=== PATIENT | female | born 1970 | race Caucasian/White ===

== ENCOUNTER 2022-08-06 11:44 | Emergency (ER) | payer BC, SELFPAY ==
[2022-08-06] VITALS (42 sets, daily range): BP systolic 127–178; BP diastolic 83–102; PULSE 79–94; RESP 9–33; TEMP 36.7; O2SAT 91–99
--- NOTE | 2022-08-06 11:48 | XRR_ITS ---
PROCEDURE INFORMATION: Exam: XR Chest Exam date and time: 08/06/2022 12:03 PM Age: 51 years old Clinical indication: Pain; Angina pectoris; Additional info: Cp TECHNIQUE: Imaging protocol: Radiologic exam of the chest. Views: 1 view. COMPARISON: No relevant prior studies available. FINDINGS: Lungs: No pulmonary vascular congestion, pulmonary edema or pneumonia. Pleural spaces: No pleural effusion or pneumothorax. Heart/Mediastinum: The cardiac silhouette is not enlarged. The mediastinal contours are normal. Bones/joints: No acute osseous abnormality. XR/XR chest 1V portable 17252 IMPRESSION: No acute finding.
--- NOTE | 2022-08-06 11:50 | ECG_ITS ---
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 Measurements Intervals [place] Rate: 94 P: 54 MD: 171 QRS: 4 QRSD: 93 T: 22 QT: 347 QTc: 436 Interpretive Statements SINUS RHYTHM No previous ECG available for comparison Electronically Signed On 08-07-2022 0:17:06 CDT by Wally Bashir M.D. [email or web address] [email or web address] [email or web address]/store/NU/[id number] f
--- NOTE | 2022-08-06 11:58 | ED_ITS ---
HPI - Chest Pain General: Chief Complaint: Chest Pain Stated Complaint: CP Time Seen by Provider: 08/06/22 11:56 History of Present Illness: Patient presents to the ER complaining of left- sided chest pain back pain and left shoulder pain. This pain has been going off and on since at least 3 days ago. Pain initially started off as a right-sided chest pain right shoulder pain that radiated up into her neck. She did go to the walk-in clinic at [facility]. Patient had EKGs and blood work done at that time. She states they did call her and tell her lab work was abnormal and did plan on setting her up for stress test. She says they did give her a prescription for nitro which she has used prior to arrival today with lessening of her pain. Patient has no personal history of cardiac issues. MD complaint: chest pain and chest heaviness Timing of current episode: episodic Prior episodes: Yes Pain location: left chest and right chest Pain radiation: right arm and left arm Severity: mild Quality: aching and dull Relieving factors: nitroglycerin Exacerbating factors: nothing Associated symptoms: Reports no associated symptoms; Deny abdominal pain, dyspnea, fever(s), nausea, palpitations or vomiting Treatment prior to arrival: nitroglycerin Risk Factors: Coronary artery disease risk factors: hyperlipidemia Review of Systems General: Reports: 10 or more systems reviewed and unremarkable except in HPI and below Const: Denies: fever(s), chills or body aches Eyes: Denies: change in vision ENMT: Denies: throat pain or odynophagia Card: Reports: chest pain; Denies: palpitations, irregular heart rhythm or edema Resp: Denies: dyspnea, productive cough, non-productive cough or wheezing GI: Denies: abdominal pain, nausea, vomiting or diarrhea : Denies: flank pain, difficulty voiding, dysuria or urinary frequency Musc: Reports: back pain and joint pain Skin/Breast: Denies: rash, pruritus, erythema or photosensitivity Neuro: Denies: headache(s), numbness in extremities or weakness in extremities Psych: Denies: anxiety, depression, mood swings or panic attacks Endo: Denies: polyuria, polydipsia, tired all the time or cold intolerance Nash/Lymph: Denies: easy bruising, easy bleeding, petechiae or purpura All/Imm: Denies: urticaria, throat swelling, tongue swelling or facial swelling Physical Exam Const: COMMON NORMALS: no acute distress, average body habitus, patient oriented x3, no limitations, healthy appearing, alert and well nourished HENMT: COMMON NORMALS: normocephalic and hearing grossly normal bilaterally HEAD & SCALP: normocephalic Eye: COMMON NORMALS: Equal, round and reactive pupils present, EOMs intact bilaterally and conjunctivae normal CONJUNCTIVA: Yes conjunctivae normal PUPIL: Yes Equal, round and reactive pupils present Neck/C-Spine: COMMON NORMALS: full ROM, no lymphadenopathy, supple, no JVD and Thyroid normal THYROID: Thyroid normal Lymph: LYMPHATIC: no lymphadenopathy noted Chest: CHEST: Yes localized rib tenderness with anteroposterior compression Resp: COMMON NORMALS: normal respiratory effort, No retractions, No use of accessory muscles and clear to auscultation bilaterally AUSCULTATION: clear to auscultation bilaterally Cardio: COMMON NORMALS: no JVD, regular rate, regular rhythm, S1 normal heart sound present, S2 normal heart sound present and No gallops present (Cardio) RATE: regular rate RHYTHM: regular rhythm HEART SOUNDS: S1 normal heart sound present and S2 normal heart sound present GI: COMMON NORMALS: Normal to inspection, nondistended, normoactive bowel sounds present, Soft to palpation, non-tender, No hepatosplenomegaly present and no masses PALPATION: Yes Soft to palpation and Yes No hepatosplenomegaly present : COMMON NORMALS: Yes no CVA tenderness BLADDER/KIDNEY EXAM: Yes no CVA tenderness Back/Pelvis: COMMON NORMALS: no CVA tenderness Extremity: COMMON NORMALS: normal to inspection Neuro: COMMON NORMALS: patient oriented x3, CN's II-XII intact bilaterally, moves all extremities, no focal motor deficits and no sensory deficits noted SENSORIUM/ORIENTATION: Yes alert Psych: COMMON NORMALS: mental status grossly normal, Normal thought process present, cooperative, normal affect and speech normal SPEECH: Yes normal speech THOUGHT PROCESS: Normal thought process present Course Vital Signs: Vital signs: Vital Signs Temperature 98.0 F 08/06/22 11:45 Pulse Rate 79 08/06/22 15:40 Respiratory Rate 13 08/06/22 15:40 Blood Pressure 131/94 08/06/22 15:40 Pulse Oximetry 97 08/06/22 15:40 Oxygen Delivery Me thod 08/06/22 13:25 MDM - Chest Pain Medical Decision Making Patient presents to the ER with intermittent chest pain for the last several days. Patient had been examined and worked up previously about 3 days ago for the same pain. Patient states the pain does move between her chest her back her left and right arms. Patient has no personal history of cardiac disease. Upon history and physical exam being performed as well as serial lab work and EKGs patient remains pain-free in ER at this time. Lab work EKGs and imaging was reviewed with the patient. She had a negative troponin and delta. Patient already has an outpatient stress test scheduled within the next week. Patient felt comfortable with discharge and outpatient follow-up as previously scheduled. Patient knows that if the pain returns or worsens or changes to present back to the ER as things may change. Differential Diagnosis Unlikely acute massive pulmonary embolism, acute respiratory failure, cardiac arrest or sudden cardiac Lab Data 08/06/22 12:22 08/06/22 12:22 Radiology Impressions Chest X-Ray 08/06/22 11:48 IMPRESSION: No acute finding. Laboratory Results WBC 10.7 10^3/uL (4.0-10.0) H 08/06/22 12:22 RBC 5.04 10^6/uL (4.1-5.3) 08/06/22 12:22 Hgb 16.5 g/dL (11.5-15.3) H 08/06/22 12:22 Hct 49.4 % (37.0-47.0) H 08/06/22 12:22 MCV 98.0 fl (81-99) 08/06/22 12:22 MCH 32.7 pg (28.0-34.0) 08/06/22 12:22 MCHC 33.4 g/dL (30.0-36.0) 08/06/22 12:22 RDW 11.9 % (12.1-15.1) L 08/06/22 12:22 Plt Count 353 10^3/cmm (130-400) 08/06/22 12:22 MPV 9.6 fL (7.4-10.4) 08/06/22 12:22 Neut % (Auto) 61.5 % 08/06/22 12:22 Lymph % (Auto) 32.1 % 08/06/22 12:22 [place] % (Auto) 4.5 % 08/06/22 12: Eos % (Auto) 0.9 % 08/06/22 12: Baso % (Auto) 0.5 % 08/06/22 12: Neut # (Auto) 6.56 10^3/uL (1.8-7.7) 08/06/22 12: Lymph # (Auto) 3.4 10^3/uL (0.8-4.8) 08/06/22 12:22 [place] # (Auto) 0.5 10^3/uL (0.2-0.9) 08/06/22 12: Eos # (Auto) 0.1 10^3/uL (0.0-0.8) 08/06/22 12: Baso # (Auto) 0.1 10^3/uL (0.0-0.1) 08/06/22 12: Nucleated RBC % (auto) 0 % 08/06/22 12: Nucleated RBCs # 0.0 /100WBC 08/06/22 12:22 Sodium 144 mmol/L (136-145) 08/06/22 12:22 Potassium 3.9 mmol/L (3.5-5.1) 08/06/22 12:22 Chloride 105 mmol/L (98-107) 08/06/22 12:22 Carbon Dioxide 26 mmol/L (22-29) 08/06/22 12:22 Anion Gap 16.9 (5-19) 08/06/22 12:22 BUN 10 mg/dL (6-20) 08/06/22 12:22 Creatinine 0.5 mg/dL (0.5-0.9) 08/06/22 12:22 GFR Calculation 130.6 mL/min (90-130) H 08/06/22 12:22 Glucose 92 mg/dL (65-115) 08/06/22 12:22 Calculated Osmolality 297 mOsm/kg (285-295) H 08/06/22 12:22 Calcium 9.8 mg/dL (8.5-10.5) 08/06/22 12:22 Total Bilirubin 0.2 mg/dL (0.15-1.2) 08/06/22 12:22 AST 22 U/L (0-32) 08/06/22 12:22 ALT 39 U/L (0-33) H 08/06/22 12:22 Alkaline Phosphatase 124 U/L (35-105) H 08/06/22 12:22 Troponin T Baseline 6 ng/L (0-10) 08/06/22 12:22 Troponin T 120 Minute 6.00 ng/L (0-10) 08/06/22 14:40 Delta Troponin T 0 ABS# (0-10) 08/06/22 14:40 Total Protein 7.8 g/dL (6.6-8.7) 08/06/22 12:22 Albumin 4.6 g/dL (3.5-5.2) 08/06/22 12:22 Globulin 3.2 g/dL (1.3-4.6) 08/06/22 12:22 EKG Data EKG 1: I personally reviewed and interpreted this EKG as follows: EKG interpretation date: 08/06/22 EKG interpretation time: 11:50 Prior EKG tracings: not available for review Interpretation: EKG showed ventricular rate of 94 bpm normal sinus rhythm, NJ interval 171, QRS duration 93, QTc of [address]-T wave changes no priors for comparison EKG 2: I personally reviewed and interpreted this EKG as follows: EKG interpretation date: 08/06/22 EKG interpretation time: 14:00 Prior EKG tracings: available for review Interpretation: EKG showed normal sinus rhythm, ventricular rate of 82 bpm, NJ interval 164, QRS duration of 98, QTc of 414, no ST-T wave changes Discharge Plan Discharge Patient Disposition: Home Clinical Impression: Atypical chest pain, Musculoskeletal pain Condition: Stable Prescriptions: No Action Carafate 1 gram Tablet 1 g PO BID@0400,1530 Protonix 20 mg Tablet,Delayed Release (Dr/Ec) 20 mg PO BID@0400,1530 lisinopril 10 mg Tablet 10 mg PO DAILY@1530 Nitrostat 0.4 mg Tablet, Sublingual 0.4 mg SUBLINGUAL Q5M PRN (Reason: Chest Pain) Rx Instructions: do not exceed 3 doses per episode gabapentin 100 mg Capsule 100 mg PO BID@0400,1530 Claritin 10 mg Tablet 10 mg PO DAILY@04 Multivitamin 50 Plus Tablet 1 tab PO DAILY@04 Wellbutrin XL 150 mg Tablet Extended Release 24 Hr 150 mg PO DAILY@04 Discharge Orders: Discharge ED (Routine); Ordered 08/06/22 Ordered By: Peterson Mejia Discharge Diet: Usual diet Discharge Activity: Resume usual activity Patient Instructions: Chest Pain - Noncardiac Activity Restrictions/Additional Instructions: Follow-up with your primary care physician within the next 1 week. keep outpatient stress test appointment as previously scheduled, return to the ER if chest pain worsens or changes. This may be a sign of changing condition Coding Level of Care Code ED [employer] Developer for [address]
[2022-08-06 12:43] LABS: Basophils # 0.1 10^3/uL (0.0-0.1); Basophils % 0.5 %; Eosinophils # 0.1 10^3/uL (0.0-0.8); Eosinophils % 0.9 %; Hematocrit 49.4 % (37.0-47.0); Hemoglobin 16.5 g/dL (11.5-15.3); Lymphocytes # 3.4 10^3/uL (0.8-4.8); Lymphocytes % 32.1 %; Mean Corpuscular HGB Conc 33.4 g/dL (30.0-36.0); Mean Corpuscular Hemoglobin 32.7 pg (28.0-34.0); Mean Platelet Volume 9.6 fL (7.4-10.4); Monocytes # 0.5 10^3/uL (0.2-0.9); Monocytes % 4.5 %; Neutrophils # 6.56 10^3/uL (1.8-7.7); Neutrophils % 61.5 %; Nucleated Red Blood Cells % 0 %; Platelet Count 353 10^3/cmm (130-400); Red Blood Count 5.04 10^6/uL (4.1-5.3); Red Cell Distribution Width 11.9 % (12.1-15.1); White Blood Count 10.7 10^3/uL (4.0-10.0)
[2022-08-06 13:02] LABS: Troponin(5th) Baseline 6 ng/L (0-10)
[2022-08-06 13:06] LABS: Alanine Aminotransferase 39 U/L (0-33); Albumin Level 4.6 g/dL (3.5-5.2); Alkaline Phosphatase 124 U/L (35-105); Anion Gap 16.9 (5-19); Aspartate Amino Transferase 22 U/L (0-32); Blood Urea Nitrogen 10 mg/dL (6-20); Calcium 9.8 mg/dL (8.5-10.5); Carbon Dioxide 26 mmol/L (22-29); Chloride 105 mmol/L (98-107); Globulin 3.2 g/dL (1.3-4.6); Glomerular Filtration Rate 130.6 mL/min (90-130); Glucose 92 mg/dL (65-115); Osmolality Calculated 297 mOsm/kg (285-295); Potassium 3.9 mmol/L (3.5-5.1); Sodium 144 mmol/L (136-145); Total Bilirubin 0.2 mg/dL (0.15-1.2); Total Protein 7.8 g/dL (6.6-8.7)
--- NOTE | 2022-08-06 13:48 | ECG_ITS ---
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 Measurements Intervals [place] Rate: 82 P: 64 MA: 164 QRS: 11 QRSD: 98 T: 19 QT: 375 QTc: 439 Interpretive Statements SINUS RHYTHM Compared to ECG 08/06/2022 11:50:24 No significant changes Electronically Signed On 08-07-2022 0:19:58 CDT by Wally Bashir M.D. [email or web address] [email or web address] memorial [id number]
[2022-08-06 15:42] LABS: Troponin 5 2HR Delta 0 ABS# (0-10)
--- NOTE | 2022-08-07 16:44 | DCPLANNER ---
Addendum entered by Darlin Chand 08/08/22 13:02: front of house manager called patient due to no primary care physician - no answer at this time Original Note: TCM called patient due to no primary care physician - no answer at this time.
== END 2022-08-06 15:46 | disposition home or self-care (01) ==
PROVIDERS: Physician Assistant; Emergency Provider Emergency Medicine
DX: R07.89 Other chest pain (principal)
CPT/HCPCS: 36415; 71045; 80053; 84484; 85025; 93005; 99285